=== PATIENT | female | born 1970 | race Caucasian/White ===

== ENCOUNTER 2017-07-19 18:38 | Emergency (ER) | payer BC ==
[~2017-07-19] VITALS: Ht 168.9 cm; Wt 90.9 kg
[~2017-07-19 18:38] MED LIST: DICL50TA3 PO; ROBA750T PO
[2017-07-19 18:40] VITALS: BP 131/71; PULSE 81; RESP 14; TEMP 98.1; O2SAT 98
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
== END 2017-07-19 19:45 | disposition left against medical advice (07) ==
LOC: NEPK 18:38
DX: M54.5 Low back pain (principal)
CPT/HCPCS: 99281